=== PATIENT | female | born 1990 | race Caucasian/White ===

== ENCOUNTER 2019-02-25 11:51 | Emergency (ER) | payer MEDICARE, MEDICAID ==
[2019-02-25] MEDS ORDERED: HYDROcodone/Acetaminophen 5/325 mg Tablet ONE (12:19)
[2019-02-25] MEDS ORDERED: Dexamethasone 4 MG TAB ONE (12:19)
== END 2019-02-25 12:21 | disposition home or self-care (01) ==
LOC: BURERS 11:51
DX: J06.9 Acute upper respiratory infection, unspecified (principal); F41.9 Anxiety disorder, unspecified; F32.9 Major depressive disorder, single episode, unspecified; F17.210 Nicotine dependence, cigarettes, uncomplicated
CPT/HCPCS: 99283; J8540

== ENCOUNTER 2019-05-16 15:59 | Emergency (ER) | payer MEDICARE, MEDICAID ==
[2019-05-16] MEDS ORDERED: Bicillin CR 1.2 MILL UNITS/2 ML SYRINGE ONE (16:50)
[2019-05-16] MEDS ORDERED: Dexamethasone 4 MG TAB ONE (16:50)
== END 2019-05-16 16:57 | disposition home or self-care (01) ==
LOC: BURERS 15:59
DX: J02.9 Acute pharyngitis, unspecified (principal); F17.210 Nicotine dependence, cigarettes, uncomplicated; F41.9 Anxiety disorder, unspecified
CPT/HCPCS: 96372; 99283; J0558; J8540

== ENCOUNTER 2020-07-24 15:28 | Emergency (ER) | payer MEDICARE, MEDICAID ==
[2020-07-24 15:41] LABS: Bilirubin Negative (Negative); Blood, Urine Small (Negative); Clarity Clear (Clear); Glucose, Urine (Dipstick) Negative (Negative); Ketone, Urine Negative (Negative); Leukocyte Trace (Negative); Nitrite Positive (Negative); Protein, Urine (Dipstick) Negative (Neg-Trace); Urobilinogen 0.2 mg/dL (Less than 2)
[2020-07-24 15:47] LABS: Bacteria/HPF Rare-Few HPF (None Seen); RBC/HPF 0-3 HPF (0-3); Squamous Epithelial 0-3 HPF (0-3); WBC/HPF 0-3 HPF (0-3)
[2020-07-24 16:27] LABS: Pregnancy Test - Urine (BHCG) Negative (Negative); Pregu Control Background? CLEAR/WHITE (CLR/WHITE); Pregu Control Bar Appear? YES (CONTROL BAR)
[2020-07-24 16:30] LABS: #Basophils 0.1 thou/uL (0.0-0.2); #Eosinphils 0.2 thou/uL (0.0-0.7); #Lymphocytes 2.6 thou/uL (1.20-3.40); #Monocytes 0.5 thou/uL (0.11-0.59); #Neutrophils 6.5 thou/uL (1.40-6.50); %Basophils 1.3 % (0.0-1.0); %Eosinophils 1.8 % (0.0-10.0); %Lymphocytes 26.4 % (21.0-51.0); %Monocytes 5.4 % (0.0-10.0); %Neutrophils 65.2 % (42.0-75.0); Mean Corpuscular Hemoglobin 29.5 pg (27.0-31.0); Mean Corpuscular Volume 92.3 fL (78.0-98.0); Mean Platelet Volume 7.5 fL (7.4-10.4); Platelet Count 242 thou/uL (130-400); RBC Distribution Width 11.8 % (11.5-14.5); Red Blood Cell (RBC) Count 4.75 mill/uL (4.20-5.40); White Blood Cell (WBC) Count 9.9 thou/uL (4.8-10.8)
[2020-07-24 16:44] LABS: ALT (SGPT) 17 U/L (8-55); AST (SGOT) 11 U/L (5-34); Alkaline Phosphatase 78 U/L (40-110); Anion Gap 16 mmol/L (10-20); BUN (Urea Nitrogen) 15 mg/dL (7.0-18.7); Bilirubin, Total 0.2 mg/dL (0.2-1.2); Calc. Creatinine Clearance 0 mL/min (70-130); Calcium 8.9 mg/dL (7.8-10.44); Carbon Dioxide 25 mmol/L (22-29); Chloride 103 mmol/L (98-107); Estimated GFR-MDRD 79; Globulin 3.2 g/dL (2.4-3.5); Glucose 98 mg/dL (70-105); Lipase 34 U/L (8-78); Protein, Total 7.2 g/dL (6.0-8.3); Sodium 140 mmol/L (136-145)
[2020-07-24] MEDS ORDERED: HYDROcodone/Acetaminophen 5/325 mg Tablet ONE (16:56)
--- NOTE | 2020-07-24 20:46 | CT ---
CT ABDOMEN AND PELVIS WITHOUT CONTRAST: Date: 07/24/2020 Comparison is made with the prior study dated 02/24/2018. The lung bases are clear. The liver may be a little generous in size, but otherwise appears normal fo r a noncontrast study. No abnormality of the spleen, pancreas, gallbladder, adrenal glands, or kidney s was seen. There is no sign of renal or ureteral calculi. No hydronephrosis was seen. No stones were seen within the urinary bladder. The abdominal aorta is normal in caliber. The left colon and proximal to mid sigmoid colon show some very mild wall thickening. I do not see th is on the prior study. There is no stranding around the colon itself. A few scattered diverticula are present. The more proximal portions of the colon and the low sigmoid/rectal region are not thickenin g. This raises the possibility of mild colitis, or colitis in the recent past. No free air or free fl uid was seen. CT of the pelvis shows no pelvic masses, fluid collections, or inflammatory changes. The adnexal sheng ons are unremarkable in appearance. The appendix appears normal. IMPRESSION: Mild thickening of the left colon through the mid sigmoid colon. Consider the possibility of colitis. Findings discussed with Dr. Putnam at 1650 hours on 07/24/2020. CODE CR. POS: HOME
== END 2020-07-24 17:31 | disposition home or self-care (01) ==
LOC: BURERS 15:28
DX: K52.9 Noninfective gastroenteritis and colitis, unspecified (principal); N39.0 Urinary tract infection, site not specified; Z79.899 Other long term (current) drug therapy
CPT/HCPCS: 36415; 74176; 80053; 81003; 81015; 81025; 83605; 83690; 85025

== ENCOUNTER 2020-08-10 16:32 | Emergency (ER) | payer MEDICARE, MEDICAID ==
[2020-08-10 17:02] LABS: Bilirubin Small (Negative); Blood, Urine Small (Negative); Clarity Clear (Clear); Glucose, Urine (Dipstick) 100 mg/dL (Negative); Ketone, Urine Trace mg/dL (Negative); Leukocyte Negative (Negative); Nitrite Positive (Negative); Protein, Urine (Dipstick) 30 mg/dL (Neg-Trace)
[2020-08-10 17:08] LABS: Specific Gravity, Urine 1.028 (1.002-1.036)
[2020-08-10 17:09] LABS: Bacteria/HPF 1+ HPF (None Seen); RBC/HPF 0-3 HPF (0-3); Squamous Epithelial 0-3 HPF (0-3)
[2020-08-10 17:10] LABS: Calcium Oxalate Crystals 1+ HPF (None Seen); Pregnancy Test - Urine (BHCG) Negative (Negative); Pregu Control Background? CLEAR/WHITE (CLR/WHITE); Pregu Control Bar Appear? YES (CONTROL BAR); Specific Gravity 1.028 (1.002-1.036)
[2020-08-10] MEDS ORDERED: HYDROcodone/Acetaminophen 5/325 mg Tablet ONE (17:33)
[2020-08-10] MEDS ORDERED: cefTRIAXone\\ROCEPHIN 1 GM VIAL ONE (17:34)
[2020-08-10] MEDS ORDERED: Lidocaine 1% PF 5 ML VIAL ONE (17:34)
[2020-08-10] MEDS ORDERED: predniSONE 20 MG TAB ONE (17:34)
== END 2020-08-10 18:07 | disposition home or self-care (01) ==
LOC: BURERS 16:32
DX: N39.0 Urinary tract infection, site not specified (principal); J02.9 Acute pharyngitis, unspecified; F41.9 Anxiety disorder, unspecified
CPT/HCPCS: 81003; 81015; 81025; 87081; 87086; 87430; 96372; 99283; J0696; J7512

== ENCOUNTER 2020-08-19 10:35 | Emergency (ER) | payer MEDICARE, MEDICAID ==
[2020-08-19 11:17] LABS: Bilirubin Negative (Negative); Blood, Urine Negative (Negative); Clarity Cloudy (Clear); Glucose, Urine (Dipstick) Negative (Negative); Ketone, Urine Negative (Negative); Leukocyte Small (Negative); Nitrite Negative (Negative); Protein, Urine (Dipstick) Negative (Neg-Trace); Urobilinogen 0.2 mg/dL (Less than 2); pH, Urine 8.5 (5.0-9.0)
[2020-08-19 11:18] LABS: Bacteria/HPF 3+ HPF (None Seen); RBC/HPF 0-3 HPF (0-3)
== END 2020-08-19 11:40 | disposition home or self-care (01) ==
LOC: BURERS 10:35
DX: M54.5 Low back pain (principal); M54.6 Pain in thoracic spine; F41.9 Anxiety disorder, unspecified
CPT/HCPCS: 81003; 81015; 87086; 99283

== ENCOUNTER 2020-09-17 14:29 | Emergency (ER) | payer MEDICARE, OTHER ==
[2020-09-17 14:49] LABS: Bilirubin Negative (Negative); Blood, Urine Small (Negative); Clarity Clear (Clear); Glucose, Urine (Dipstick) Negative (Negative); Ketone, Urine Negative (Negative); Leukocyte Small (Negative); Nitrite Negative (Negative); Protein, Urine (Dipstick) Negative (Neg-Trace); Urobilinogen 0.2 mg/dL (Less than 2)
[2020-09-17 14:57] LABS: Bacteria/HPF 1+ HPF (None Seen); RBC/HPF 0-3 HPF (0-3); Squamous Epithelial 0-3 HPF (0-3)
[2020-09-17 14:58] LABS: Pregnancy Test - Urine (BHCG) Negative (Negative); Pregu Control Background? CLEAR/WHITE (CLR/WHITE); Pregu Control Bar Appear? YES (CONTROL BAR)
== END 2020-09-17 15:02 | disposition home or self-care (01) ==
LOC: BURERS 14:29
DX: N39.0 Urinary tract infection, site not specified (principal); F41.9 Anxiety disorder, unspecified
CPT/HCPCS: 81003; 81015; 81025; 99283

== ENCOUNTER 2021-01-20 19:02 | Emergency (ER) | payer MEDICARE, OTHER, MEDICAID ==
[2021-01-20] MEDS ORDERED: Ketorolac Tromethamine 30 MG/ML VIAL ONE (20:31)
[2021-01-20] MEDS ORDERED: Dexamethasone 4 mg/ml Vial ONE (20:35)
== END 2021-01-20 20:45 | disposition home or self-care (01) ==
LOC: BURERS 19:02
DX: S43.401A Unspecified sprain of right shoulder joint, initial encounter (principal); Z79.899 Other long term (current) drug therapy; W19.XXXA Unspecified fall, initial encounter
CPT/HCPCS: 96372; J1100; J1885